=== PATIENT | male | born 1980 | race Caucasian/White ===

== ENCOUNTER 2019-02-18 11:09 | Emergency (ER) | payer OTHER ==
[~2019-02-18] VITALS: Ht 175.3 cm; Wt 78.1 kg
[2019-02-18 11:09] VITALS: BP 139/78
[2019-02-18] MEDS ORDERED: SUBO8MIS (11:16)
[2019-02-18] MEDS ORDERED: AMOX875T2 (11:16)
[2019-02-18] MEDS ORDERED: DOXY100C37 PO (11:50)
== END 2019-02-18 12:02 | disposition home or self-care (01) ==
LOC: M ED 11:09
DX: L03.032 Cellulitis of left toe (principal)

== ENCOUNTER → 2019-07-15 | Outpatient (CLI) | payer OTHER ==
[~2019-07-15] MED LIST: AMOX875T2; DOXY100C37 PO; SUBO8MIS
[2019-07-15 15:33] LABS: HEMATOCRIT 46.4 % (42.0-52.0); HEMOGLOBIN 15.5 g/dl (13.5-17.5); MEAN CORPUSCULAR HEMOGLOBIN 31.2 pg (27.0-33.0); MEAN CORPUSCULAR HGB CONC 33.4 g/dl (32.0-36.5); MEAN CORPUSCULAR VOLUME 93.4 fl (80.0-96.0); PLATELET COUNT, AUTOMATED 270 10^3/uL (150-450); RED BLOOD COUNT 4.97 10^6/uL (4.30-6.10); WHITE BLOOD COUNT 8.8 10^3/uL (4.0-10.0)
[2019-07-15 16:06] LABS: ALT/SGPT 26 U/L (12-78); BILIRUBIN,TOTAL 0.7 MG/DL (0.2-1.0); BLOOD UREA NITROGEN 15 MG/DL (7-18); CALCIUM LEVEL 9.3 MG/DL (8.5-10.1); CARBON DIOXIDE LEVEL 32 MEQ/L (21-32); CHLORIDE LEVEL 109 MEQ/L (98-107); CREATININE FOR GFR 0.94 MG/DL (0.70-1.30); GLOMERULAR FILTRATION RATE > 60.0 (>60); GLUCOSE, FASTING 99 MG/DL (70-100); POTASSIUM SERUM 4.1 MEQ/L (3.5-5.1); SODIUM LEVEL 143 MEQ/L (136-145); TOTAL PROTEIN 7.6 GM/DL (6.4-8.2)
[2019-07-15 16:27] LABS: HEPATITIS B SURFACE ANTIGEN NEGATIVE (NEGATIVE)
[2019-07-15 16:53] LABS: HEPATITIS C VIRUS ABY INDEX < 0.0 INDEX (<0.8)
[2019-07-15 16:54] LABS: HEPATITIS B CORE ANTIBODY IGM NEGATIVE (NEGATIVE)
[2019-07-15 16:55] LABS: HIV 1&2 SCREEN CENTAUR NEGATIVE (NEGATIVE)
[2019-07-15 16:56] LABS: HEPATITIS A ANTIBODY IGM NEGATIVE (NEGATIVE)
== END ==
LOC: M WUC 12:17
PROVIDERS: ATTEND Family Medicine
DX: Z11.4 Encounter for screening for human immunodeficiency virus [HIV] (principal); Z79.899 Other long term (current) drug therapy

== ENCOUNTER 2019-12-24 12:34 | Emergency (ER) | payer OTHER ==
[2019-12-24] MEDS ORDERED: ONDANSETRON 4MG/2ML VIAL ONE (13:23)
[2019-12-24] MEDS ORDERED: ONDANSETRON 4MG/2ML VIAL As Ordered ONE (13:23)
--- NOTE | 2020-01-28 11:45 | ECGEPIP ---
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
[2020-02-13 10:15] LABS: BASO % 0.4 % (0.0-1.0); EOS % 0.2 % (0.0-3.0); HEMATOCRIT 51.8 % (42.0-52.0); HEMOGLOBIN 17.2 g/dl (13.5-17.5); LYMPH # 1.6 10^3/uL (1.5-5.0); LYMPH % 17.4 % (24.0-44.0); MEAN CORPUSCULAR HEMOGLOBIN 30.8 pg (27.0-33.0); MEAN CORPUSCULAR HGB CONC 33.2 g/dl (32.0-36.5); MEAN CORPUSCULAR VOLUME 92.7 fl (80.0-96.0); MONO # 0.8 10^3/uL (0.0-0.8); MONO % 9.1 % (0.0-5.0); NEUTROPHILS # 6.7 10^3/uL (1.5-8.5); NEUTROPHILS % 72.6 % (36.0-66.0); PLATELET COUNT, AUTOMATED 270 10^3/uL (150-450); RED BLOOD COUNT 5.59 10^6/uL (4.30-6.10); WHITE BLOOD COUNT 9.2 10^3/uL (4.0-10.0)
== END 2019-12-24 15:50 | disposition home or self-care (01) ==
LOC: M ED 12:34
DX: R11.2 Nausea with vomiting, unspecified (principal); E86.0 Dehydration; F11.10 Opioid abuse, uncomplicated; F17.210 Nicotine dependence, cigarettes, uncomplicated; Z79.891 Long term (current) use of opiate analgesic
CPT/HCPCS: 80048; 80076; 82550; 82553; 83690; 85025; 93005; 96374; 99284; J2405

== ENCOUNTER 2020-07-12 21:11 | Emergency (ER) | payer OTHER ==
[~2020-07-12] VITALS: Ht 177.8 cm; Wt 79.7 kg
[2020-07-12 21:12] VITALS: BP 132/86
[2020-07-12] MEDS ORDERED: METH10CO PO (21:19)
== END 2020-07-12 21:33 | disposition left against medical advice (07) ==
LOC: M ED 21:11
DX: Z53.21 Procedure and treatment not carried out due to patient leaving prior to being seen by health care provider (principal)

== ENCOUNTER 2020-11-16 11:01 | Emergency (ER) | payer OTHER ==
[~2020-11-16] VITALS: Ht 172.7 cm; Wt 81.8 kg
[~2020-11-16 11:01] MED LIST changes: -DOXY100C37 PO; +DOXY1CAP62 PO; +METH10CO PO
[2020-11-16] MEDS ORDERED: LORazepam 1 MG TAB PO STA ×2 (11:21→14:24)
[2020-11-16 11:55] LABS: HEMOGLOBIN 17.7 g/dl (13.5-17.5); MEAN CORPUSCULAR HEMOGLOBIN 30.5 pg (27.0-33.0); MEAN CORPUSCULAR HGB CONC 34.7 g/dl (32.0-36.5); MEAN CORPUSCULAR VOLUME 87.8 fl (80.0-96.0); PLATELET COUNT, AUTOMATED 333 10^3/uL (150-450); RED BLOOD COUNT 5.81 10^6/uL (4.30-6.10); WHITE BLOOD COUNT 12.7 10^3/uL (4.0-10.0)
[2020-11-16 12:29] LABS: ACETAMINOPHEN LEVEL < 2.0 UG/ML (10.0-30.0); ALBUMIN 4.7 GM/DL (3.2-5.2); ALT/SGPT 18 U/L (12-78); BILIRUBIN,DIRECT 0.4 MG/DL (0.0-0.2); BILIRUBIN,TOTAL 2.3 MG/DL (0.2-1.0); BLOOD UREA NITROGEN 13 MG/DL (7-18); CALCIUM LEVEL 10.1 MG/DL (8.5-10.1); CARBON DIOXIDE LEVEL 23 MEQ/L (21-32); CHLORIDE LEVEL 106 MEQ/L (98-107); CREATININE FOR GFR 1.27 MG/DL (0.70-1.30); ETHYL ALCOHOL (ETHANOL) < 0.003 % (0.000-0.010); GLOMERULAR FILTRATION RATE > 60.0 (>60); GLUCOSE, FASTING 131 MG/DL (70-100); POTASSIUM SERUM 4.3 MEQ/L (3.5-5.1); SALICYLATE LEVEL < 1.7 MG/DL (5.0-30.0); SODIUM LEVEL 137 MEQ/L (136-145); TOTAL PROTEIN 9.1 GM/DL (6.4-8.2)
[2020-11-16 14:22] LABS: AMPHETAMINES LEVEL URINE POSITIVE (NEGATIVE); BARBITURATES URINE NEGATIVE (NEGATIVE); BENZODIAZEPINES URINE NEGATIVE (NEGATIVE); CANNABINOIDS URINE NEGATIVE (NEGATIVE); COCAINE METABOLITE URINE NEGATIVE (NEGATIVE); METHADONE URINE POSITIVE (NEGATIVE); OPIATES URINE POSITIVE (NEGATIVE); PHENCYCLIDINE URINE NEGATIVE (NEGATIVE)
[2020-11-16] MEDS ORDERED: HALOPERIDOL 5MG/ML VIAL (J1630 PER 1) IM ONE (15:20)
[2020-11-16] MEDS ORDERED: diphenhydrAMINE 50MG/ML VIAL (J1200) IM ONE (15:20)
[2020-11-16] MEDS ORDERED: LORazepam 2 MG/ML VIAL IM ONE (15:20)
[2020-11-17 09:18] VITALS: BP 118/67
== END 2020-11-17 09:19 | disposition home or self-care (01) ==
LOC: M ED 11:01
DX: F15.129 Other stimulant abuse with intoxication, unspecified (principal); F11.10 Opioid abuse, uncomplicated; F31.9 Bipolar disorder, unspecified
CPT/HCPCS: 80048; 80076; 80143; 80307; 82077; 84443; 85027; 96372; 99285; J1200; J1630; J2060

== ENCOUNTER 2021-02-28 15:24 | Emergency (ER) | payer OTHER ==
[~2021-02-28] VITALS: Ht 172.7 cm; Wt 75.0 kg
[~2021-02-28 15:24] MED LIST changes: +DOXY-443 PO; -DOXY1CAP62 PO
--- OUTSIDE RECORDS SUMMARY | 2021-02-28 15:29 | CCD ---
Author Author [facility] Organization [facility] Address Unknown Phone Unavailable Care Team Providers Care Geriatric Nursing Assistant Name Role Phone Barby Thurman Unavailable Re-disclosure Warning The records that you are about to access may contain information from federally-assisted alcohol or drug abuse programs. If such information is present, then the following federally mandated warning applies: This information has been disclosed to you from records protected by federal confidentiality rules (42 CFR part 2). The federal rules prohibit you from making any further disclosure of this information unless further disclosure is expressly permitted by the written consent of the person to whom it pertains or as otherwise permitted by 42 CFR part 2. A general authorization for the release of medical or other information is NOT sufficient for this purpose. The Federal rules restrict any use of the information to criminally investigate or prosecute any alcohol or drug abuse patient.The records that you are about to access may contain highly sensitive health information, the redisclosure of which is protected by Article 27-F of the [facility] Public Health law. If you continue you may have access to information: Regarding HIV / AIDS; Provided by facilities licensed or operated by the [facility] Office of Mental Health; or Provided by the [facility] Office for People With Developmental Disabilities. If such information is present, then the following [facility] mandated warning applies: This information has been disclosed to you from confidential records which are protected by state law. State law prohibits you from making any further disclosure of this information without the specific written consent of the person to whom it pertains, or as otherwise permitted by law. Any unauthorized further disclosure in violation of state law may result in a fine or chcf sentence or both. A general authorization for the release of medical or other information is NOT sufficient authorization for further disc losure. Family History Family Member Name Family Member Gender Family Member Status Date o f Status Description Data Source(s) Unknown Unknown Problem [facility] ([facility]) Encounters Encounter Providers Location Date Indications Data Source(s ) Brief Individual Psychotherapy - 30 min Attender: Barby christianson [facility] Assisted 08/17/2020 01:30:00 AM EDT - 08/17/2020 01:30:00 AM EDT [facility] ([facility]) Attender: Barby Thurman 08/17/2020 12:00:00 AM E DT [facility] ([facility]) Immunizations Vaccine Date Status Description Data Source(s) COVID-19 VACCINE [facility] 08/19/2020 12:00:00 AM EDT completed NYSIIS Vaccine Series Complete: YESThis Data wa s Submitted to [facility] Via [employer]. COVID-19 VACCINE [employer] 08/19/2020 12:00:00 AM EDT completed NYSIIS Vaccine Series Complete: YESThis Data wa s Submitted to [facility] [employer]. Medications Medication Brand Name Start Date Product Form Dose Route Admi nistrative Instructions Pharmacy Instructions Status Indications Reaction Description Data Source(s) 500 mg 09/15/2020 12:00:00 AM EDT tablet 40 TAKE ONE TABLET BY MOUTH FOUR TIMES A DAY FOR 10 DAYS TAKE ONE TABLET BY MOUTH FOUR TIMES A DAY FOR 10 DAYS SOLD: 10/05/2020 [facility] Insurance Providers Payer name Policy type / Coverage type Policy ID Covered democrat ID Covered democrat's relationship to bautista Policy Bautista Plan Information [facility] COMMUNITY PL[place] [facility] [id number] SP [id number] [facility] [id number] SP [id number] [facility] Health Maintenance Organization (HMO) [id number] Self [id number] [facility] AMERICHOICE XIX -HMO [id number] 18 [id number] [facility] Community Plan Commercial [id number] Self [place] MEDICAID 2 [id number] 1 [id number] SELF PAY 2 UNAVAILABLE 1 UNAVAILA BLE [facility] W [id number] S [id number] Problems, Conditions, and Diagnoses Code Display Name Description Problem Type Effective Dates Data Source(s) F11.20 Opioid dependence, uncomplicated Opioid Use Disorder, Severe Condition 08/17/2020 12:00:00 AM EDT [facility] ([facility]) Surgeries/Procedures Procedure Description Date Indications Data Source(s) Brief Individual Psychotherapy - 30 min 08/17/2020 12:00:00 AM EDT - 08/17/2020 12:00:00 AM EDT [facility] ([facility]) Brief Individual Psychotherapy - 30 min 08/17/2020 12: 00:00 AM EDT [facility] ([facility]) Results No Information Social History Code Duration Value Status Description Data Source(s ) Smoking 08/17/2020 12:00:00 AM EDT Unknown if ever smoked comp leted Unknown if ever smoked [facility] ([facility]) Vital Signs ID Date Data Source UNK Name Value Range Interpretation Code Description Data Source(s) Systolic blood pressure 121 mm[Hg] 121 mm[Hg] M EDENT ([facility]) Diastolic blood pressure 74 mm[Hg] 74 mm[Hg] [facility] ([facility]) Heart rate 97 /min 97 /min [facility] ([facility]) Respiratory rate 20 /min 20 /[facility] Body temperature 99.0 [degF] 99.0 [degF] [facility] ([facility]) Body weight 172.00 [lb_av] 172.00 [lb_av] MEDEN T ([facility])
--- OUTSIDE RECORDS SUMMARY | 2021-02-28 16:14 | CCD ---
Author Author [facility] Organization [facility] Address Unknown Phone Unavailable Care Team Providers Care Medical Office Coordinator Name Role Phone Barby Thurman Unavailable Re-disclosure [...] is protected by Article 27-F of the [facility] Public Health law. If you continue you may have access to information: Regarding HIV / AIDS; Provided by facilities licensed or operated by the [facility] Office of Mental Health; or Provided by the [facility] Office for People With Developmental Disabilities. If such information is present, then the following [facility] mandated warning applies: This information has been [...] law may result in a fine or fci sentence or both. A general authorization for [...] Psychotherapy - 30 min Attender: Barby christianson [facility] 08/17/2020 01:30:00 AM EDT - 08/17/2020 01:30:00 AM EDT [facility] ([facility]) Attender: Barby Thurman 08/17/2020 12:00:00 AM E DT [facility] ([facility]) Immunizations Vaccine Date Status Description Data Source(s) COVID-19 VACCINE [facility] 08/19/2020 12:00:00 AM EDT completed NYSIIS Vaccine Series Complete: YESThis Data wa s Submitted to [facility] Via [employer]. COVID-19 VACCINE Homer 08/19/2020 12:00:00 AM EDT completed NYSIIS Vaccine Series Complete: YESThis Data wa s Submitted to [facility] [employer]. Medications Medication Brand Name Start Date Product [...] relationship to bautista Policy Bautista Plan Information [facility] COMMUNITY PLAN [facility] [id number] SP [id number] [facility] PLAN [facility] [id number] SP [id number] [facility] Health Maintenance Organization (HMO) [id number] Self [id number] [facility] AMERICHOICE XIX -HMO [id number] 18 [id number] [facility] Community Plan Commercial [id number] Self [place] MEDICAID 2 [id number] 1 [id number] SELF PAY 2 UNAVAILABLE 1 UNAVAILA BLE [facility] W [id number] S [id number] Problems, Conditions, and Diagnoses Code Display Name Description Problem Type Effective Dates Data Source(s) F11.20 Opioid dependence, uncomplicated Opioid Use Disorder, Severe Condition 08/17/2020 12:00:00 AM EDT [facility] ([facility]) Surgeries/Procedures Procedure Description Date Indications Data Source(s) Brief Individual Psychotherapy - 30 min 08/17/2020 12:00:00 AM EDT - 08/17/2020 12:00:00 AM EDT [facility] ([facility]) Brief Individual Psychotherapy - 30 min 08/17/2020 12: 00:00 AM EDT [facility] ([facility]) Results No Information Social History Code Duration Value Status Description Data Source(s ) Smoking 08/17/2020 12:00:00 AM EDT Unknown if ever smoked comp leted Unknown if ever smoked [facility] ([facility]) Vital Signs ID Date Data Source UNK Name Value Range Interpretation Code Description Data Source(s) Systolic blood pressure 121 mm[Hg] 121 mm[Hg] M EDENT ([facility]) Diastolic blood pressure 74 mm[Hg] 74 mm[Hg] [facility] ([facility]) Heart rate 97 /min 97 /min [facility] ([facility]) Respiratory rate 20 /min 20 /[facility] Body temperature 99.0 [degF] 99.0 [degF] [facility] ([facility]) Body weight 172.00 [lb_av] 172.00 [lb_av] MEDEN T ([facility])
[2021-02-28 16:18] LABS: HEMATOCRIT 47.5 % (42.0-52.0); HEMOGLOBIN 16.3 g/dl (13.5-17.5); MEAN CORPUSCULAR HEMOGLOBIN 29.9 pg (27.0-33.0); MEAN CORPUSCULAR HGB CONC 34.3 g/dl (32.0-36.5); PLATELET COUNT, AUTOMATED 383 10^3/uL (150-450); RED BLOOD COUNT 5.46 10^6/uL (4.30-6.10); WHITE BLOOD COUNT 12.2 10^3/uL (4.0-10.0)
[2021-02-28] MEDS ORDERED: LORazepam 2 MG/ML VIAL IM ONE (16:20)
[2021-02-28] MEDS ORDERED: HALOPERIDOL 5MG/ML VIAL (J1630 PER 1) IM ONE (16:20)
[2021-02-28] MEDS ORDERED: diphenhydrAMINE 50MG/ML VIAL (J1200) IM ONE (16:20)
[2021-02-28] MEDS ORDERED: HALOPERIDOL 5MG/ML VIAL (J1630 PER 1) As Ordered ONE (16:28)
[2021-02-28 16:59] LABS: ACETAMINOPHEN LEVEL < 2.0 UG/ML (10.0-30.0); ALBUMIN 4.4 GM/DL (3.2-5.2); ALT/SGPT 21 U/L (12-78); BILIRUBIN,DIRECT 0.4 MG/DL (0.0-0.2); BILIRUBIN,TOTAL 1.9 MG/DL (0.2-1.0); BLOOD UREA NITROGEN 17 MG/DL (7-18); CALCIUM LEVEL 9.6 MG/DL (8.5-10.1); CARBON DIOXIDE LEVEL 24 MEQ/L (21-32); CHLORIDE LEVEL 105 MEQ/L (98-107); CREATININE FOR GFR 1.23 MG/DL (0.70-1.30); ETHYL ALCOHOL (ETHANOL) < 0.003 % (0.000-0.010); GLOMERULAR FILTRATION RATE > 60.0 (>60); GLUCOSE, FASTING 114 MG/DL (70-100); POTASSIUM SERUM 4.3 MEQ/L (3.5-5.1); SALICYLATE LEVEL < 1.7 MG/DL (5.0-30.0); SODIUM LEVEL 138 MEQ/L (136-145); TOTAL PROTEIN 9.2 GM/DL (6.4-8.2)
[2021-02-28 18:32] LABS: AMPHETAMINES LEVEL URINE POSITIVE (NEGATIVE); BARBITURATES URINE NEGATIVE (NEGATIVE); BENZODIAZEPINES URINE NEGATIVE (NEGATIVE); CANNABINOIDS URINE NEGATIVE (NEGATIVE); COCAINE METABOLITE URINE NEGATIVE (NEGATIVE); METHADONE URINE POSITIVE (NEGATIVE); OPIATES URINE POSITIVE (NEGATIVE); PHENCYCLIDINE URINE NEGATIVE (NEGATIVE)
[2021-03-01] MEDS ORDERED: HOME MED LIST COMPLETE! XX SCH (09:25)
[2021-03-01 11:51] VITALS: BP 138/89
--- NOTE | 2021-03-01 13:53 | MHIPNPDOC ---
[facility] Progress Note Progress Note Patient was presented by PSA, per presentation does not meet criteria for involuntary admission at this time and refuse voluntary admission. Patient is a history of a long history of polysubstance abuse, was on methadone, brought in by police was acting bizarre in context of methamphetamine use last night, altered in context of substance use which is cleared up this a.m., no history of suicide attempts, no firearms, back to baseline, euthymic full affect, denies suicidal ideation, intent or plan. Denies homicidal ideation, intent or plan. Reportedly does not appear manic or psychotic and is future oriented and goal or iented to go to [facility] to get daily methadone by 11 AM. Patient lives with parents and has 2 daughters and the age of 18. Patient may just be discharged safety plan in place, has a mental health appointment within 5 days. Vital Signs Vital Signs Date Time Temp Pulse Resp B/P (MAP) Pulse Ox O2 Delivery O2 Flow Rate FiO2 03/01/21 11:51 98.7 89 16 138/89 (105) 98 Room Air Laboratory Data 24H Labs Laboratory Tests 2 02/28/21 16:08: Nucleated Red Blood Cells % (auto) 0.0, Anion Gap 9, Glomerular Filtration Rate > 60.0, Calcium Level 9.6, Total Bilirubin 1.9H, Direct Bilirubin 0.4H, Aspar sommers Amino Transf (AST/SGOT) 22, Alanine Aminotransferase (ALT/SGPT) 21, Alkaline Phosphatase 64, Total Protein 9.2H, Albumin 4.4, Albumin/Globulin Ratio 0.9, Thyroid Stimulating Hormone (TSH) 2.550, Salicylates Level < 1.7L, Acetaminophen Level < 2.0L, Ethyl Alcohol Level < 0.003 02/28/21 17:56: Urine Opiates Screen POSITIVEH, Urine Methadone Screen POSITIVEH, Urine Barbitur ates Screen NEGATIVE, Urine Phencyclidine Screen NEGATIVE, Urine Amphetamines Screen POSITIVEH, Urine Benzodiazepines Screen NEGATIVE, Urine Cocaine Metabolite Screen NEGATIVE, Urine Cannabinoids Screen NEGATIVE CBC/BMP Laboratory Tests 02/28/21 16:08 Current Medications Current Medications Medications (Trade) Dose Ordered Sig/Christina Route PRN Reason Start Time Stop Time Status Last Admin Dose Admin Home Med (Home Med List Complete!) ASDIRECTED XX 03/01/21 09:25 03/01/21 09:24 DC Allergies Coded Allergies: No Known Allergies (Unverified , 02/18/19) ISAAC LUND MD Mar 01, 2021 13:53
== END 2021-03-01 11:56 | disposition home or self-care (01) ==
LOC: M ED 15:24
DX: F32.A Depression, unspecified (principal); F19.10 Other psychoactive substance abuse, uncomplicated; F17.200 Nicotine dependence, unspecified, uncomplicated
CPT/HCPCS: 36415; 80048; 80076; 80143; 80307; 82077; 84443; 85027; 96372; 99285; J1200; J1630; J2060

== ENCOUNTER 2021-03-19 03:15 | Emergency (ER) | payer OTHER ==
[~2021-03-19] VITALS: Ht 177.8 cm; Wt 79.5 kg
[2021-03-19] MEDS ORDERED: HALOPERIDOL 5MG/ML VIAL (J1630 PER 1) IM STA (04:28)
[2021-03-19] MEDS ORDERED: LORazepam 2 MG/ML VIAL IM STA (04:28)
[2021-03-19] MEDS ORDERED: diphenhydrAMINE 50MG/ML VIAL (J1200) IM STA (04:28)
[2021-03-19 05:21] LABS: HEMATOCRIT 45.4 % (42.0-52.0); HEMOGLOBIN 15.4 g/dl (13.5-17.5); MEAN CORPUSCULAR HEMOGLOBIN 29.9 pg (27.0-33.0); MEAN CORPUSCULAR HGB CONC 33.9 g/dl (32.0-36.5); MEAN CORPUSCULAR VOLUME 88.2 fl (80.0-96.0); PLATELET COUNT, AUTOMATED 287 10^3/uL (150-450); RED BLOOD COUNT 5.15 10^6/uL (4.30-6.10); WHITE BLOOD COUNT 11.2 10^3/uL (4.0-10.0)
[2021-03-19 06:04] LABS: ACETAMINOPHEN LEVEL < 2.0 UG/ML (10.0-30.0); ALBUMIN 4.3 GM/DL (3.2-5.2); ALT/SGPT 28 U/L (12-78); BILIRUBIN,DIRECT 0.4 MG/DL (0.0-0.2); BILIRUBIN,TOTAL 2.3 MG/DL (0.2-1.0); BLOOD UREA NITROGEN 26 MG/DL (7-18); CALCIUM LEVEL 9.9 MG/DL (8.5-10.1); CARBON DIOXIDE LEVEL 25 MEQ/L (21-32); CHLORIDE LEVEL 102 MEQ/L (98-107); CREATININE FOR GFR 1.25 MG/DL (0.70-1.30); ETHYL ALCOHOL (ETHANOL) < 0.003 % (0.000-0.010); GLOMERULAR FILTRATION RATE > 60.0 (>60); GLUCOSE, FASTING 110 MG/DL (70-100); POTASSIUM SERUM 4.2 MEQ/L (3.5-5.1); SALICYLATE LEVEL < 1.7 MG/DL (5.0-30.0); SODIUM LEVEL 138 MEQ/L (136-145); THYROID STIMULATING HORMONE 0.862 uIU/ML (0.358-3.740); TOTAL PROTEIN 8.7 GM/DL (6.4-8.2)
[2021-03-19] MEDS ORDERED: METH10CO PO (08:49)
[2021-03-19] MEDS ORDERED: HOME MED LIST COMPLETE! XX SCH (08:50)
[2021-03-19 11:40] LABS: AMPHETAMINES LEVEL URINE POSITIVE (NEGATIVE); BARBITURATES URINE NEGATIVE (NEGATIVE); BENZODIAZEPINES URINE NEGATIVE (NEGATIVE); CANNABINOIDS URINE NEGATIVE (NEGATIVE); COCAINE METABOLITE URINE NEGATIVE (NEGATIVE); METHADONE URINE POSITIVE (NEGATIVE); OPIATES URINE POSITIVE (NEGATIVE); PHENCYCLIDINE URINE NEGATIVE (NEGATIVE)
[2021-03-19 11:57] LABS: RSV AMPLIFICATION NEGATIVE (NEGATIVE)
[2021-03-19 22:21] VITALS: BP 117/74
== END 2021-03-19 22:26 | disposition home or self-care (01) ==
LOC: M ED 03:15
DX: F19.10 Other psychoactive substance abuse, uncomplicated (principal)
CPT/HCPCS: 80048; 80076; 80143; 80307; 82077; 84443; 85027; 87631; 96372; 99285; J1200; J1630; J2060

== ENCOUNTER 2022-07-04 16:37 | Emergency (ER) | payer OTHER ==
[~2022-07-04] VITALS: Ht 175.3 cm; Wt 73.6 kg
[2022-07-04] MEDS ORDERED: NS 1,000 ML IV ONE (17:35)
[2022-07-04] MEDS ORDERED: ONDANSETRON 4MG 2ML VIAL IV ONE (17:45)
[2022-07-04 17:56] LABS: BASO % 0.3 % (0.0-1.0); EOS # 0.1 10^3/uL (0.0-0.5); EOS % 0.7 % (0.0-3.0); HEMATOCRIT 44.2 % (42.0-52.0); LYMPH # 1.1 10^3/uL (1.5-5.0); LYMPH % 12.3 % (24.0-44.0); MEAN CORPUSCULAR HGB CONC 33.9 g/dl (32.0-36.5); MEAN CORPUSCULAR VOLUME 94.2 fl (80.0-96.0); MONO # 0.6 10^3/uL (0.0-0.8); MONO % 6.1 % (2.0-8.0); NEUTROPHILS # 7.2 10^3/uL (1.5-8.5); NEUTROPHILS % 80.3 % (36.0-66.0); PLATELET COUNT, AUTOMATED 260 10^3/uL (150-450); RED BLOOD COUNT 4.69 10^6/uL (4.30-6.10)
[2022-07-04 17:57] LABS: LIPASE 59 U/L (12-53)
[2022-07-04 18:03] LABS: ALKALINE PHOSPHATASE 63 U/L (46-116); ALT/SGPT 27 U/L (7.0-40); AST/SGOT 34 U/L (<34); BILIRUBIN,TOTAL 0.9 MG/DL (0.3-1.2); BLOOD UREA NITROGEN 16 MG/DL (9-23); CALCIUM LEVEL 9.3 MG/DL (8.5-10.1); CARBON DIOXIDE LEVEL 28 MMOL/L (20-31); CHLORIDE LEVEL 104 MMOL/L (98-107); GLOMERULAR FILTRATION RATE > 60.0 (>60); GLUCOSE, FASTING 187 MG/DL (60-100); MAGNESIUM LEVEL 2.1 MG/DL (1.8-2.4); POTASSIUM SERUM 4.3 MMOL/L (3.5-5.1); SODIUM LEVEL 139 MMOL/L (136-145)
[2022-07-04] MEDS: NS 1,000 ML IV SCH (20:00)
[2022-07-04 22:17] LABS: AMPHETAMINES LEVEL URINE NEGATIVE (NEGATIVE); BARBITURATES URINE NEGATIVE (NEGATIVE); BENZODIAZEPINES URINE NEGATIVE (NEGATIVE)
[2022-07-04 22:18] LABS: CANNABINOIDS URINE NEGATIVE (NEGATIVE); COCAINE METABOLITE URINE NEGATIVE (NEGATIVE); METHADONE URINE NEGATIVE (NEGATIVE); OPIATES URINE NEGATIVE (NEGATIVE); PHENCYCLIDINE URINE NEGATIVE (NEGATIVE)
[2022-07-04 22:30] VITALS: BP 111/63
== END 2022-07-04 22:57 | disposition home or self-care (01) ==
LOC: EDBD 16:37 → M ED 16:37
DX: T40.1X1A Poisoning by heroin, accidental (unintentional), initial encounter (principal); F17.200 Nicotine dependence, unspecified, uncomplicated
CPT/HCPCS: 70450; 71045; 72125; 74176; 80053; 80307; 83605; 83690; 83735; 85025; 93005; 96374; 99284; J2405

== ENCOUNTER → 2022-07-19 | Outpatient (CLI) | payer MEDICAID, OTHER | LOC: M WHC 09:40 | PROVIDERS: ATTEND Physician Assistant | DX: M85.88 Other specified disorders of bone density and structure, other site (principal) ==

== ENCOUNTER → 2022-07-19 | Outpatient (CLI) | payer MEDICAID, OTHER ==
[2022-07-19 13:21] LABS: BASO # 0.1 10^3/uL (0.0-0.2); BASO % 0.8 % (0.0-1.0); EOS # 0.4 10^3/uL (0.0-0.5); EOS % 5.6 % (0.0-3.0); HEMATOCRIT 45.6 % (42.0-52.0); HEMOGLOBIN 14.9 g/dl (13.5-17.5); LYMPH # 2.2 10^3/uL (1.5-5.0); MEAN CORPUSCULAR HEMOGLOBIN 31.3 pg (27.0-33.0); MEAN CORPUSCULAR HGB CONC 32.7 g/dl (32.0-36.5); MEAN CORPUSCULAR VOLUME 95.8 fl (80.0-96.0); MONO # 0.9 10^3/uL (0.0-0.8); MONO % 13.6 % (2.0-8.0); NEUTROPHILS % 45.8 % (36.0-66.0); PLATELET COUNT, AUTOMATED 254 10^3/uL (150-450); RED BLOOD COUNT 4.76 10^6/uL (4.30-6.10); WHITE BLOOD COUNT 6.5 10^3/uL (4.0-10.0)
[2022-07-19 14:02] LABS: ALBUMIN 3.9 G/DL (3.2-5.2); ALKALINE PHOSPHATASE 63 U/L (46-116); ALT/SGPT 32 U/L (7.0-40); AST/SGOT 30 U/L (<34); BILIRUBIN,TOTAL 0.8 MG/DL (0.3-1.2); BLOOD UREA NITROGEN 18 MG/DL (9-23); CALCIUM LEVEL 9.1 MG/DL (8.5-10.1); CARBON DIOXIDE LEVEL 30 MMOL/L (20-31); CHLORIDE LEVEL 103 MMOL/L (98-107); CHOLESTEROL LEVEL 154 MG/DL (<200); CHOLESTEROL RISK RATIO 2.97 (<5); CREATININE FOR GFR 0.78 MG/DL (0.70-1.30); FREE T4 1.26 NG/DL (0.89-1.76); GLOMERULAR FILTRATION RATE > 60.0 (>60); GLUCOSE, FASTING 97 MG/DL (60-100); HDL CHOLESTEROL 51.8 MG/DL (>40); LDL CHOLESTEROL 88.6 MG/DL (<100); NON-HDL-C 102 MG/DL; POTASSIUM SERUM 4.5 MMOL/L (3.5-5.1); SODIUM LEVEL 138 MMOL/L (136-145); THYROID STIMULATING HORMONE 2.023 uIU/ML (0.55-4.78); TRIGLYCERIDES LEVEL 68 MG/DL (<150)
[2022-07-19 14:12] LABS: HEMOGLOBIN A1c 5.6 % (4.0-6.0)
[2022-07-19 14:14] LABS: HEPATITIS B SURFACE ANTIGEN NEGATIVE (NEGATIVE)
[2022-07-19 14:27] LABS: HIV 1&2 SCREEN CENTAUR NEGATIVE (NEGATIVE)
[2022-07-19 14:34] LABS: HEPATITIS B CORE ANTIBODY IGM NEGATIVE (NEGATIVE)
== END ==
LOC: M WUC 08:36
PROVIDERS: ATTEND Physician Assistant
DX: Z13.0 Encounter for screening for diseases of the blood and blood-forming organs and certain disorders involving the immune mechanism (principal); Z13.220 Encounter for screening for lipoid disorders; Z13.29 Encounter for screening for other suspected endocrine disorder

== ENCOUNTER → 2022-08-08 | Outpatient (CLI) | payer OTHER | LOC: M RAD 14:36 | PROVIDERS: ATTEND Physician Assistant | DX: M47.12 Other spondylosis with myelopathy, cervical region (principal); M47.26 Other spondylosis with radiculopathy, lumbar region ==

== ENCOUNTER → 2022-09-01 | Outpatient (CLI) | payer OTHER | LOC: M RAD 13:51 | PROVIDERS: ATTEND Surgery | DX: K40.90 Unilateral inguinal hernia, without obstruction or gangrene, not specified as recurrent (principal); K42.9 Umbilical hernia without obstruction or gangrene ==

== ENCOUNTER 2022-10-13 09:34 | Day surgery (SDC) | payer OTHER ==
[~2022-10-13] VITALS: Ht 175.3 cm; Wt 77.0 kg
[~2022-10-13 09:34] MED LIST changes: +GABA-282 PO; +SUBO8MIS SL; +ceFAZolin SOD 2 GM in IV 1 EA IV ONE
[2022-10-13] MEDS ORDERED: HYDROmorphone HCL 2MG/ML 1ML VIAL As Ordered ONE (10:31)
[2022-10-13] MEDS ORDERED: fentaNYL 100 MCG/2 ML INJECTION As Ordered ONE (10:32)
[2022-10-13] MEDS ORDERED: MIDAZOLAM INJ 2MG/2ML VIAL As Ordered ONE (10:32)
[2022-10-13] MEDS ORDERED: ONDANSETRON 4MG 2ML VIAL As Ordered ONE (10:34)
[2022-10-13] MEDS ORDERED: propofoL 200 MG/20 ML VIAL As Ordered ONE ×2 (10:34→12:48)
[2022-10-13] MEDS ORDERED: ACETAMINOPHEN 1000MG 100ML IV BAG As Ordered ONE (10:34)
[2022-10-13] MEDS ORDERED: KETOROLAC 60MG 2ML VIAL As Ordered ONE (10:34)
[2022-10-13] MEDS ORDERED: ROCURONIUM BROMIDE 50MG/5ML VIAL As Ordered ONE (10:34)
[2022-10-13] MEDS ORDERED: LIDOCAINE 2% 100MG/5ML SDV (FOR ANES.) As Ordered ONE (10:34)
[2022-10-13] MEDS ORDERED: LR 1,000 ML IV SCH ×2 (10:45→12:55)
[2022-10-13] MEDS ORDERED: LIDOCAINE 1% SDV 5ML VIAL SC PRN (10:45)
[2022-10-13] MEDS ORDERED: BUPIVACAINE/EPIN 0.25% 30ML VIAL As Ordered ONE (11:23)
[2022-10-13] MEDS ORDERED: SUGAMMADEX SODIUM 500 MG/5 ML VIAL (BRIDION) As Ordered ONE (12:17)
[2022-10-13] MEDS ORDERED: SCOPOLAMINE 1MG TRANSDERMAL PATCH As Ordered ONE (12:32)
[2022-10-13] MEDS ORDERED: fentaNYL 100 MCG/2 ML INJECTION IV PRN (12:55)
[2022-10-13] MEDS ORDERED: oxyCODONE 5MG TAB PO PRN (12:55)
[2022-10-13] MEDS ORDERED: ONDANSETRON 4MG 2ML VIAL IV PRN (12:55)
[2022-10-13] MEDS: HYDROMORPHONE HCL 0.5 MG/ 0.5 ML SYRINGE IV PRN ×2 (13:33→13:44)
[2022-10-13 14:04] VITALS: BP 130/78
== END 2022-10-13 14:21 | disposition home or self-care (01) ==
LOC: M SDC 09:34
PROVIDERS: ATTEND Surgery
DX: K40.91 Unilateral inguinal hernia, without obstruction or gangrene, recurrent (principal); K42.9 Umbilical hernia without obstruction or gangrene; K21.9 Gastro-esophageal reflux disease without esophagitis; F32.A Depression, unspecified; Z79.899 Other long term (current) drug therapy; F17.210 Nicotine dependence, cigarettes, uncomplicated; Z79.891 Long term (current) use of opiate analgesic
CPT/HCPCS: 49592; 49651; C1781; J0131; J0690; J1100; J1170; J1885; J2250; J2405; J3010; S2900

== ENCOUNTER → 2024-12-19 | Outpatient (REF) | payer OTHER ==
[~2024-12-19] MED LIST changes: +DOXY-441 PO; -DOXY-443 PO; +GABA-1172 PO; -GABA-282 PO; -ceFAZolin SOD 2 GM in IV 1 EA IV ONE
== END ==
LOC: M LAB 21:30
PROVIDERS: ATTEND Physician Assistant Medical
DX: J02.9 Acute pharyngitis, unspecified (principal)

== ENCOUNTER → 2025-02-28 | Outpatient (CLI) | payer OTHER | LOC: M PLARAD 09:49 | PROVIDERS: ATTEND Pain Medicine Interventional Pain Medicine | DX: M54.16 Radiculopathy, lumbar region (principal) ==